=== PATIENT | female | born 1970 | race Caucasian/White ===

== ENCOUNTER 2022-12-29 07:59 | Day surgery (SDC) | payer OTHER ==
[2022-12-22 12:37] LABS: ALBUMIN 3.5 G/DL (3.4-5.0); ALKALINE PHOSPHATASE 86 IU/L (46-116); BASOPHILS % (AUTO) 0.4 % (0-1); BLOOD UREA NITROGEN 17 MG/DL (7-18); BUN/CREATININE RATIO 27.4 (10.0-20.0); CALCIUM 9.5 MG/DL (8.5-10.1); CHLORIDE 106 MMOL/L (99-107); CREATININE 0.62 MG/DL (0.40-0.90); EOSINOPHILS # (AUTO) 0.1 X10'3 (0-0.9); EOSINOPHILS % (AUTO) 0.7 % (0-6); LYMPHOCYTES # (AUTO) 1.9 X10'3 (1.1-4.8); LYMPHOCYTES % (AUTO) 20.5 % (21-51); MEAN CORPUSCULAR HEMOGLOBIN 25.6 PG (27.0-31.0); MEAN CORPUSCULAR HGB CONC 32.6 g/dL (33.0-36.5); MEAN CORPUSCULAR VOLUME 78.5 FL (78-98); MEAN PLATELET VOLUME 8.7 FL (7.4-10.4); MONOCYTES # (AUTO) 0.6 X10'3 (0-0.9); MONOCYTES % (AUTO) 6.3 % (2-12); NEUTROPHILS # (AUTO) 6.7 X10'3 (1.8-7.7); NEUTROPHILS % (AUTO) 72.1 % (42-75); PRE OP ALT 25 U/L (30-65); PRE OP ANION GAP 10 (8-16); PRE OP AST 13 U/L (10-37); PRE OP BILIRUB, TOTAL 0.4 MG/DL (0.0-1.0); PRE OP GLUCOSE 101 MG/DL (70-104); PRE OP HEMATOCRIT 41.3 % (35.0-45.0); PRE OP HEMOGLOBIN 13.5 g/dL (12.0-16.0); PRE OP PLATELET COUNT 244 X10'3 (140-440); PRE OP POTASSIUM 3.8 MMOL/L (3.4-5.1); PRE OP SODIUM 141 MMOL/L (135-145); RED BLOOD COUNT 5.26 X10'6 (4.20-5.60); RED CELL DISTRIBUTION WIDTH 15.3 % (11.5-14.5); TOTAL CARBON DIOXIDE 25.2 MMOL/L (24-32); TOTAL PROTEIN 6.9 G/DL (6.4-8.2); eGFR > 90 ML/MIN
[2022-12-29] VITALS (29 sets, daily range): BP systolic 88–145; BP diastolic 48–84
[~2022-12-29] VITALS: Ht 180.3 cm; Wt 151.6 kg
[~2022-12-29 07:59] MED LIST: HYDROcodone/acetaminophen 10/325mg tab PO PRN; HYDROmorphone 1 mg/ml syringe IV PRN; HYDROmorphone inj. 0.5 MG/0.5 ML DISP.SYRIN IV PRN; MELO-100 PO; acetaminophen 325mg tablet PO PRN; bisacodyl 10mg suppository rectal RC PRN; celeCOXIB 100mg capsule PO ONE; diphenhydrAMINE 25mg capsule PO PRN; famotidine 20mg tablet PO ONE; magnesium hydroxide 30ml (MOM) UD suspension PO PRN; metoclopramide 5 mg/ml inj IV ONE; naloxone 0.4 mg/ml inj IV PRN; ondansetron/PF 4mg/2ml inj IV PRN; ringers solution, lacted 1,000 ML IV SCH; tranexamic acid inj. 1,000 MG in normal saline IV soln 100ML IV ONE; vancomycin 1,500 MG in NS 300ml IV soln IV ONE
[2022-12-29] MEDS ORDERED: gabapentin 300mg capsule PO SCH (08:00)
--- NOTE | 2022-12-29 08:05 | NUR ---
PT ARRIVED TO [facility] FOR R SHERIF. PT COMPLETED 5 DAYS OF HIBICLENS SHOWERS AND WENT TO AN EDUCATION CLASS FOR TOTAL JOINTS. PEDAL PULSES WERE W/N/L AND MARKED. CSM W/N/L. Addendum: 12/29/22 at 1234 by Lainey Chavez RN Amended: Links added.
[2022-12-29] MEDS ORDERED: proCHLORperazine 10 MG/2 ml inj IV PRN (09:55)
[2022-12-29] MEDS ORDERED: ringers solution, lacted 1,000 ML IV SCH (09:55)
[2022-12-29] MEDS ORDERED: morphine 4 MG/ML inj SYRINge IV PRN (09:55)
[2022-12-29] MEDS ORDERED: morphine 2 MG/ML inj. syringe IV PRN (09:55)
[2022-12-29] MEDS ORDERED: ondansetron/PF 4mg/2ml inj IV PRN (09:55)
[2022-12-29] MEDS ORDERED: meperidine/PF 25mg/ml syringe IV PRN ×3 (09:55)
[2022-12-29] MEDS ORDERED: VANCOmycin 2,000MG in NS 500ml IV soln IV ONE (10:00)
[2022-12-29] MEDS ORDERED: ceFAZolin inj. 3,000 MG in normal saline 100ml IV soln 100 ML IV ONE (10:00)
[2022-12-29] MEDS ORDERED: gabapentin 300mg capsule PO ONE (10:00)
[2022-12-29] MEDS ORDERED: acetaminophen 325mg tablet PO ONE (10:00)
[2022-12-29] MEDS ORDERED: oxyCODONE SR 10mg (sust. release) tab -2 tabs (20mg) PO ONE (10:00)
[2022-12-29] MEDS ORDERED: ROPIVAcaine 0.5% (5mg/ml) 30ml vial ONE (10:43)
[2022-12-29] MEDS ORDERED: vancomycin 1,000mg inj ONE (10:43)
[2022-12-29] MEDS ORDERED: epiNEPHrine 1 mg/ml inj ONE (10:43)
[2022-12-29] MEDS ORDERED: cloNIDine hcl/PF 100mcg/ml inj ONE (10:43)
[2022-12-29] MEDS ORDERED: fentaNYL/PF 50MCG/1 ML 2ML syringe ONE (11:32)
[2022-12-29] MEDS ORDERED: MIDAZolam 1mg/ml 10ml vial ONE (11:32)
[2022-12-29] MEDS ORDERED: BUPIVAcaine/PF 7.5mg/ml (0.75%) 10ml vial ONE (13:09)
--- NOTE | 2022-12-29 13:44 | NUR ---
Received from OR via , accompanied by Anesthesiologist TRIP AND OR NURSE and report given by Anesthesiolgist. PT IS AWAKE AND ALERT AND DENIES PAIN OR DISCOMFORT. BLOCK STILL EFFECTIVE WITH NO FEELING FROM TOP OF THIGHS DOWN. OLIVIA DRESSING TO RT THIGH. 20G TO RT HAND. VSS WITH SB Addendum: 12/29/22 at 1410 by Constance Dunn RN Amended: Links added.
[2022-12-29] MEDS ORDERED: tranexamic acid inj. 1,500 MG in normal saline 100ml IV soln 85 ML IV ONE (15:00)
[2022-12-29] MEDS ORDERED: ceFAZolin/D5W- 1GM premix 50 ML IV SCH (16:00)
--- NOTE | 2022-12-29 16:44 | NUR ---
PATIENT HAS MET ALL CRITERIA FOR TRANSFER TO THE ORTHO FLOOR. VSS. DRESSINGS INTACT. BED LOW, CALL LIGHT PRESENT AND 2 RAILS UP. RN PRESENT TO ACCEPT CARE OF PATIENT AND REPORT HAS BEEN CALLED. ALL QUESTIONS ANSWERED TO ACCEPTING RN. Addendum: 12/29/22 at 1651 by Constance Dunn RN Amended: Links added.
--- NOTE | 2022-12-29 17:04 | NUR ---
Received patient and report from Kavita DELUCA, patient tucked in assessed.
[2022-12-29] MEDS: potassium cl 20mEq in 1/2 NS 1,000 ML IV SCH ×2 (17:19→22:00)
[2022-12-29] MEDS: HYDROcodone/acetaminophen 10/325mg tab PO PRN ×2 (17:46→22:06)
--- NOTE | 2022-12-29 18:19 | NUR ---
Problems reprioritized. Patient report given, questions answered & plan of care reviewed with Liliam DELUCA.
--- NOTE | 2022-12-29 18:30 | NUR ---
Patient in room ORTHO 4009. I have received report from Tammie DELUCA and had the opportunity to ask questions and assume patient care.
[2022-12-29] MEDS ORDERED: vancomycin inj 1,750 MG in normal saline 500ml IV soln 350 ML IV ONE (20:00)
[2022-12-29] MEDS: ceFAZolin inj. 3,000 MG in normal saline 100ml IV soln 100 ML IV SCH (20:46)
[2022-12-29] MEDS: ascorbic acid 500mg tablet PO SCH (20:50)
[2022-12-29] MEDS: gabapentin 300mg capsule PO SCH (20:50)
[2022-12-29] MEDS ORDERED: sennosides 8.6mg tablet PO SCH (21:00)
[2022-12-30 02:00] VITALS: BP 99/40
[2022-12-30] MEDS: potassium cl 20mEq in 1/2 NS 1,000 ML IV SCH (03:53)
[2022-12-30] MEDS: HYDROcodone/acetaminophen 10/325mg tab PO PRN ×2 (04:04→08:46)
[2022-12-30] MEDS: ceFAZolin inj. 3,000 MG in normal saline 100ml IV soln 100 ML IV SCH (04:58)
--- NOTE | 2022-12-30 06:22 | NUR ---
Report given to Tammie DELUCA
[2022-12-30 06:46] LABS: ANION GAP 3 (8-16); CHLORIDE 104 MMOL/L (99-107); POTASSIUM 4.2 MMOL/L (3.5-5.1); SODIUM 136 MMOL/L (135-145); TOTAL CARBON DIOXIDE 28.8 MMOL/L (24-32)
[2022-12-30 06:52] LABS: BASOPHILS % (AUTO) 0.2 % (0-1); EOSINOPHILS % (AUTO) 0.1 % (0-6); HEMATOCRIT 36.5 % (35.0-45.0); LYMPHOCYTES # (AUTO) 1.2 X10'3 (1.1-4.8); LYMPHOCYTES % (AUTO) 9.7 % (21-51); MEAN CORPUSCULAR HGB CONC 32.9 g/dL (33.0-36.5); MEAN CORPUSCULAR VOLUME 78.9 FL (78-98); MEAN PLATELET VOLUME 8.5 FL (7.4-10.4); MONOCYTES % (AUTO) 7.8 % (2-12); NEUTROPHILS # (AUTO) 10.4 X10'3 (1.8-7.7); NEUTROPHILS % (AUTO) 82.2 % (42-75); PLATELET COUNT 216 X10'3 (140-440); RED BLOOD COUNT 4.63 X10'6 (4.20-5.60); RED CELL DISTRIBUTION WIDTH 14.9 % (11.5-14.5); WHITE BLOOD COUNT 12.7 X10'3 (4.5-11.0)
[2022-12-30 07:00] VITALS: BP 120/48
[2022-12-30] MEDS ORDERED: multivitamins, therapeutics tablet PO SCH (08:00)
[2022-12-30] MEDS ORDERED: aspirin 325mg tablet PO SCH (08:30)
[2022-12-30] MEDS: gabapentin 300mg capsule PO SCH (08:45)
[2022-12-30] MEDS: ascorbic acid 500mg tablet PO SCH (08:46)
--- NOTE | 2022-12-30 10:05 | NUR ---
Patient wheeled out of hospital. IV taken out and canula intact.
--- NOTE | 2022-12-30 10:55 | NUR ---
Joint surgery consult: Pt s/p R knee surgery this admit per EMR. Pt seen by MARY ANNE for written/verbal high protein diet ed w/ RD contact information provided. MARY ANNE encouraged pt to contact dietitian's office if nutrition questions/concerns. Addendum: 12/30/22 at [address] Amended: Links added.
[2022-12-30] MEDS ORDERED: celeCOXIB 100mg capsule PO SCH (20:00)
== END 2022-12-30 11:23 | disposition home or self-care (01) ==
LOC: PAS 07:59 → ORTHO 4S 17:08 → PAS 12-30 11:23
PROVIDERS: ATTEND Orthopaedic Surgery
DX: M16.11 Unilateral primary osteoarthritis, right hip (principal); E66.01 Morbid (severe) obesity due to excess calories; Z68.42 Body mass index [BMI] 45.0-49.9, adult; K21.9 Gastro-esophageal reflux disease without esophagitis; G89.18 Other acute postprocedural pain; Z90.49 Acquired absence of other specified parts of digestive tract; Z79.899 Other long term (current) drug therapy; Z72.89 Other problems related to lifestyle; Z79.82 Long term (current) use of aspirin; Z98.890 Other specified postprocedural states
CPT/HCPCS: 27130; 36415; 64450; 72170; 76942; 80051; 80053; 82948; 85025; 86885; 86900; 86901; 87081; C1776; J0171; J0690; J0735; J2175; J2250; J2765; J2795; J3010; J3370; J3480; J3490; J7030; J7040; J7120; Z7506; Z7508; Z7512; A7000; G0378